=== PATIENT | male | born 1985 | race Caucasian/White ===

== ENCOUNTER 2023-09-17 03:37 | Emergency (ER) | payer OTHER, SELFPAY ==
[2023-09-17 03:43] VITALS: BP 130/90
[2023-09-17 04:48] LABS: Urine Albumin Negative (Neg - Trace); Urine Bilirubin Negative (Negative); Urine Character Clear (Clear); Urine Color Yellow; Urine Glucose Negative (Negative); Urine Ketone Negative (Negative); Urine Leukocyte Negative (Negative); Urine Nitrite Negative (Negative); Urine Occult Blood Negative (Negative); Urine Specific Gravity 1.015 (<1.030); Urine Urobilinogen Negative (Neg - 1+)
--- NOTE | 2023-09-17 06:12 | ED.GENMED ---
History of Present Illness
General
Chief Complaint: Urinary Symptoms
Source: patient
Exam Limitations: none
Time Seen by Provider: 09/17/23 04:23
Nursing documentation reviewed up to this point in time: agreed with
Travel History
Have you had any contact with someone who has COVID-19?: No
Do you have any symptoms of coronavirus? Fever > 100 degrees, chills, cough, shortness of breath, sore throat, loss of taste or smell, muscle aches, or headache?: No
History of Present Illness
History of Present Illness:
This is a 37-year-old gentleman who has history of hyperlipidemia, hypothyroidism maintained on a statin as well as levothyroxine. He complains of gross hematuria that began tonight. He states his urine was very dark in color but no difficulty
urinating, he has not been passing clots. He does admit to mild urinary frequency and intermittent discomfort at urethral meatus but no dysuria, no urinary urgency. He admits to mild suprapubic discomfort that is intermittent but no flank pain, no
fever no chills. No history of similar episodes in the past. He takes no anticoagulants.
He denies recent injury, no fall nor flank trauma.
He is in a monogamous relationship with his .
Over the weekend he was lying on his back on a cold floor working underneath of his automobile and he was concerned that perhaps the cold floor was cause for the blood in his urine. Again he denies trauma nor injury.
Past History
Past History
ED Past Medical History: Hypercholesterolemia and Hypothyroidism
ED Past Surgical History: None
Social History
Tobacco: Non-smoker
Alcohol: None
Drug: None
Personal:
Living: with family
Employment: Employed (courier delivery driver)
Family History
Family History: Negative Diabetes, Hypertension, Early CAD, CAD or Sudden
Phy Exam
Physical Exam
Physical Exam:
GENERAL: 37-year-old gentleman appears his stated age, bright and alert, pleasant, appears in no acute distress.
EYE: anicteric
NECK: Supple, nontender, no meningismus, no significant adenopathy.
ENT: oral mucosa is moist. No rhinorrhea.
CARDIAC: Regular rate and rhythm. no murmur.
LUNGS: Clear breath sounds bilaterally, no acute respiratory distress, no wheezes/rales/rhonchi
ABDOMEN: Soft, nondistended, without focal tenderness, no r/g, no cvat. normoactive BS. No palpable masses. Bladder is not palpably distended.
NEUROLOGICAL: Alert and oriented x3, no focal neuro deficits. Gait is lima and steady.
SKIN: Warm and dry, normal color, skin intact. No rash.
MUSCULOSKELETAL: No C/C/E. peripheral pulses are full and equal b/l. No palpable tenderness.
PSYCH: Normal and appropriate interaction.
Course
Orders/Labs/Results
Orders:
Orders
09/17/23 03:58
Urine Reflex Culture from [facility] [Urinalysis Reflex To Culture] Urgent
Date Specimen was Collected: 09/17/23
Time Specimen was Collected: 03:57
Vital Signs
Initial and Last Documented VS:
Initial Vital Signs
Temp Pulse Resp BP Pulse Ox
98.8 F 70 18 130/90 96
09/17/23 03:43 09/17/23 03:43 09/17/23 03:43 09/17/23 03:43 09/17/23 03:43
Last Documented Vital Signs
Temp Pulse Resp BP Pulse Ox
98.5 F 68 14 126/86 97
09/17/23 06:15 09/17/23 06:15 09/17/23 06:15 09/17/23 06:15 09/17/23 06:15
MDM/Problems Addressed
Differential Diagnosis Includes:
Patient presents with potential painless hematuria. Concern for UTI, ureteric stone, potential for renal mass, polyp. No report of trauma and exam is benign.
Awaiting urinalysis.
*Critical Care Note
Total Time (30-74mins, 75-104mins- exclusive of procedures): Not Applicable
Update Note
Update Note:
Urinalysis is unremarkable, completely clear.
Patient has had no recurrent hematuria since arrival to the ED, abdomen remains soft and nontender.
At this point unclear if patient has had an episode of hematuria versus just darkened urine.
Discussed importance of remaining well-hydrated on a daily basis and follow-up with PCP if hematuria recurs. He has also been referred to urology as needed.
ED Attending Note
-
Portions of this chart may have been created with voice recognition software.� Occasional wrong word or��sound alike� substitutions may have occurred due to the inherent limitations of voice recognition software.
Discharge Plan
Departure
Patient Disposition: Home (Routine Discharge)
Date of Disposition: 09/17/23
Time of Disposition: 06:12
Patient with high blood pressure during this ER visit?: No
Condition: Good
Discharge Problem:
Intermittent gross hematuria
Instructions: Blood in the Urine (Hematuria), Adult (DC)
Prescriptions:
No Action
meclizine 25 MG tablet
25 mg PO Q8HPRN PRN (Reason: nausea or vertigo) Qty: 30 0RF
Referrals:
King Kiran MD [Family Provider] - Call in 1-3 days for appt
Ivan Funez MD [Active] - Call in 1-3 days for appt
Interventions
Interventions:
*Risk Screen - Suicide Last Done: 09/17/23 03:45
*General Assessment Last Done: 09/17/23 03:59
*Neglect/Abuse Screening Last Done: 09/17/23 03:45
ED- Fall Risk Assessment Last Done: 09/17/23 03:57
*ED COVID-19 Vaccine History Last Done: 09/17/23 03:59
*Nursing Disposition Last Done: 09/17/23 06:15
ED-Male Genitourinary Assessment Last Done: 09/17/23 03:57
Discharge Date and Time
Discharge Date/Time: 09/17/23 06:15
Print Language: LAO
[2023-09-17 06:15] VITALS: BP 126/86
== END 2023-09-17 06:15 | disposition home or self-care (01) ==
LOC: EMR 03:37
PROVIDERS: EMERGENCY PHYSICIAN Emergency Medicine; FAMILY PHYSICIAN Internal Medicine
DX: R31.0 Gross hematuria (principal); R35.0 Frequency of micturition
CPT/HCPCS: 99283; 51798; 51701; 81003